=== PATIENT | male | born 1950 | race African-American/Black ===

== ENCOUNTER 2020-02-27 08:00 | Inpatient (IN) ==
[2020-02-27] MEDS ORDERED: GLUCAGON 1 MG VIAL IM PRN ×2 (08:50)
[2020-02-27] MEDS ORDERED: DEXTROSE 50% 25 GM/50 ML VIAL IV PRN ×2 (08:50)
[2020-02-27] MEDS ORDERED: SODIUM CHLORIDE 0.9% 1,000 ML IV SCH (09:00)
[2020-02-27] MEDS ORDERED: ROSUVASTATIN 10 MG TABLET PO SCH (09:00)
[2020-02-27] MEDS: ENOXAPARIN 30 MG/0.3 ML SYRINGE SUBCUT SCH (18:23)
[2020-02-27] MEDS: amLODIPine 10 MG TABLET PO SCH (18:24)
[2020-02-27] MEDS: CHLORHEXIDINE 0.12% ORAL RINSE 60 ML BOTTLE SWISH/SPIT SCH ×2 (18:24→21:11)
[2020-02-27] MEDS: hydrALAZINE 10 MG TABLET PO SCH ×2 (18:24→21:11)
[2020-02-27] MEDS: GABAPENTIN 600 MG TABLET PO SCH (18:25)
[2020-02-27] MEDS: CHLORTHALIDONE 25 MG TABLET PO SCH (18:26)
[2020-02-27] MEDS: carvediloL 3.125 MG TABLET PO SCH ×2 (18:26→21:11)
[2020-02-28 03:36] LABS: Allen Test Positive; Pt O2 Delivery Device Room Air
[2020-02-28 03:37] LABS: ABG Base Excess 3.3 MMOL/L (-2.5-2.5); ABG HCO3 27.3 MMOL/L (20-26); ABG PCO2 41.3 MM HG (35-48); ABG PH 7.437 (7.35-7.45); ABG PO2 61.2 MM HG (80-95); ABG TCO2 24.9 MMOL/L (23-27)
[2020-02-28] MEDS: LEVOTHYROXINE 25 MCG TABLET PO SCH (05:47)
[2020-02-28 06:14] LABS: Basophils % 0.8 % (0.0-0.8); Eosinophils # 0.3 10*3/uL (0.0-0.87); Eosinophils % 4.7 % (0.00-10.9); Hematocrit 31.3 VOL% (42.0-52.0); Hemoglobin 11.1 GM/DL (14.0-18.0); Immature Granulocytes % 0.2 %; Immature Granulocytes Absolute 0.01 #; Lymphocytes # 2.4 10*3/uL (1.4-4.0); Lymphocytes % 44.1 % (21.2-54.2); Mean Corpuscular HGB Conc 35.5 GM/DL (32-36); Mean Corpuscular Volume 82.6 FL (87-102); Mean Platelet Volume 10.7 FL (9.6-12.0); Monocytes % 10.9 % (1.7-12.7); Neutrophils % 39.3 % (38.7-73.9); Platelet Count 163 T/CUMM (130-400); Red Blood Count 3.79 MC/CUMM (3.8-5.5); Red Cell Distribution Width 13.7 % (9.3-17.3); White Blood Count 5.3 T/CUMM (4-12)
[2020-02-28 06:27] LABS: Bilirubin,Total 0.4 MG/DL (0.2-1.0); Calcium 8.5 MG/DL (8.5-10.1); Osmolality,Calculated 279.4 MOS/KG (273-304); Total Protein 6.3 G/DL (6.4-8.3)
[2020-02-28] MEDS: GABAPENTIN 600 MG TABLET PO SCH (09:36)
[2020-02-28] MEDS: METOPROLOL SUCCINATE XL 25 MG TABLET PO SCH (09:36)
[2020-02-28] MEDS: hydrALAZINE 10 MG TABLET PO SCH ×3 (09:36→21:22)
[2020-02-28] MEDS: amLODIPine 10 MG TABLET PO SCH (09:36)
[2020-02-28] MEDS: carvediloL 3.125 MG TABLET PO SCH ×2 (09:36→21:23)
[2020-02-28] MEDS: CHLORTHALIDONE 25 MG TABLET PO SCH (09:36)
[2020-02-28] MEDS: VALSARTAN 80 MG TABLET PO SCH (09:37)
[2020-02-28] MEDS: CHLORHEXIDINE 0.12% ORAL RINSE 60 ML BOTTLE SWISH/SPIT SCH ×2 (09:52→21:23)
[2020-02-28] MEDS: ENOXAPARIN 30 MG/0.3 ML SYRINGE SUBCUT SCH (17:07)
[2020-02-29] MEDS: LEVOTHYROXINE 25 MCG TABLET PO SCH (06:03)
[2020-02-29 06:29] LABS: Osmolality,Calculated 273.8 MOS/KG (273-304)
[2020-02-29] MEDS: METOPROLOL SUCCINATE XL 25 MG TABLET PO SCH (09:49)
[2020-02-29] MEDS: CHLORTHALIDONE 25 MG TABLET PO SCH (09:49)
[2020-02-29] MEDS: carvediloL 3.125 MG TABLET PO SCH ×2 (09:49→20:50)
[2020-02-29] MEDS: hydrALAZINE 10 MG TABLET PO SCH ×3 (09:49→20:49)
[2020-02-29] MEDS: VALSARTAN 80 MG TABLET PO SCH (09:49)
[2020-02-29] MEDS: CHLORHEXIDINE 0.12% ORAL RINSE 60 ML BOTTLE SWISH/SPIT SCH ×2 (09:49→20:49)
[2020-02-29] MEDS: GABAPENTIN 600 MG TABLET PO SCH (09:49)
[2020-02-29] MEDS: amLODIPine 10 MG TABLET PO SCH (09:49)
[2020-02-29] MEDS ORDERED: FAMOTIDINE 20 MG TABLET PO ONE (09:54)
[2020-02-29] MEDS ORDERED: DIAZEPAM 5 MG TABLET PO ONE (09:54)
[2020-02-29] MEDS: CHLORHEXIDINE 4% SOLN 118 ML BOTTLE TOP SCH ×2 (16:30→20:50)
[2020-03-01] MEDS ORDERED: PAPAVERINE 60 MG/2 ML VIAL ONE (04:23)
[2020-03-01] MEDS ORDERED: VANCOMYCIN 500 MG VIAL ONE (04:24)
[2020-03-01] MEDS ORDERED: VANCOMYCIN 1,000 MG VIAL ONE ×2 (04:24→10:06)
[2020-03-01] MEDS ORDERED: DIAZEPAM 5 MG TABLET PO ONE (05:30)
[2020-03-01] MEDS ORDERED: FAMOTIDINE 20 MG TABLET PO ONE (05:30)
[2020-03-01] MEDS ORDERED: SODIUM CHLORIDE 0.9% 1,000 ML IV SCH (06:00)
[2020-03-01] MEDS ORDERED: CEFUROXIME INJ 1,500 MG in SYRINGE 1 EACH IV ONE (06:00)
[2020-03-01] MEDS ORDERED: VECURONIUM 10 MG VIAL IV ONE (06:05)
[2020-03-01] MEDS ORDERED: LIDOCAINE 2% 5 ML VIAL ONE ×3 (06:05→10:02)
[2020-03-01] MEDS ORDERED: HEPARIN/NACL 0.9% 2 UNITS/ML 500 ML IV ONE (06:05)
[2020-03-01 07:40] LABS: ABG Base Excess 1.5 MMOL/L (-2.5-2.5); ABG HCO3 25.9 MMOL/L (20-26); ABG Oxygen Saturation 98.8 % (95-100); ABG PCO2 39.9 MM HG (35-48); ABG PO2 301.6 MM HG (80-95); ABG TCO2 27.1 MMOL/L (23-27); Glucose Heart Surgery 89 MG/DL (74-106); Hemoglobin Heart Surgery 11.6 G/DL (14.0-18.0); Ionized Calcium Arterial 1.28 MMOL/L (1.21-1.46); PCO2 Patient Temp Arterial 39.9 MMHG; PO2 Patient Temp Arterial 301.6 MM HG; Patient Temperature 37 CELCIUS; Potassium Heart/CVR 3.2 MMOL/L (3.5-5.1); Sodium Heart/CVR 134 MMOL/L (135-145)
[2020-03-01] MEDS ORDERED: NITROPRUSSIDE 50 MG/2 ML VIAL ONE (07:40)
[2020-03-01] MEDS ORDERED: SODIUM BICARBONATE 50 MEQ/50 ML VIAL IV ONE ×2 (07:40→10:03)
[2020-03-01] MEDS ORDERED: PHENYLEPHRINE DRIP 40 MG/250 ML PREMIX IV ONE (07:40)
[2020-03-01] MEDS ORDERED: POTASSIUM CHLORIDE RIDER 100 ML IV ONE (07:41)
[2020-03-01] MEDS ORDERED: CALCIUM CHLORIDE 1,000 MG/10 ML SYRINGE IV ONE (07:41)
[2020-03-01 08:19] LABS: Apearance,Urine CLEAR (Clear); Bilirubin,Urine Negative (Negative); Blood, Urine Negative (Negative); Glucose,Urine (UA) Negative (Negative); Hyaline Casts,Urine 12 /LPF (0-3); Ketones,Urine Negative (Negative); Mucus,Urine Occasional /LPF (Occasional); Nitrite,Urine Negative (Negative); Protein,Urine Negative; RBC,Urine 1 /HPF (0-4); Urine Color Yellow (Yellow); Urine Specific Gravity 1.013 (1.001-1.035); Urine Urobilinogen < 2.0 EU/DL (0.2-1.0)
[2020-03-01 09:01] LABS: Hematocrit Heart Surgery 21.9 PERCENT (42-52); PCO2 Patient Temp Venous 33.6 MM HG; PH Patient Temp Venous 7.484; PO2 Patient Temp Venous 39.8 MM HG; Potassium Heart/CVR 4.2 MMOL/L (3.5-5.1); VBG Base Excess 2.2 MEQ/L (0-4); VBG HCO3 26.2 MEQ/L (24-28); VBG Oxygen Saturation 82.1 %; VBG PCO2 38.9 MMHG (41-51); VBG PH 7.44; VBG PO2 48.9 MMHG (17-40)
[2020-03-01] MEDS ORDERED: SODIUM CHLORIDE 0.9% 200 ML IV ONE (09:22)
[2020-03-01] MEDS ORDERED: SODIUM CHLORIDE 0.9% 1,000 ML IV ONE (09:22)
[2020-03-01] MEDS ORDERED: AMINOCAPROIC ACID 5,000 MG/20 ML VIAL ONE (09:22)
[2020-03-01] MEDS ORDERED: MIDAZOLAM 10 MG/2 ML VIAL ONE (09:22)
[2020-03-01] MEDS ORDERED: SUFentanil 250 MCG/5 ML AMP ONE (09:22)
[2020-03-01] MEDS ORDERED: SODIUM CHLORIDE 0.9% 250 ML IV ONE (09:22)
[2020-03-01] MEDS ORDERED: PHENYLEPHRINE 10 MG/1 ML VIAL IV ONE (09:22)
[2020-03-01] MEDS ORDERED: CALCIUM CHLORIDE 1,000 MG/10 ML VIAL IV ONE (09:22)
[2020-03-01] MEDS ORDERED: LACTATED RINGERS 1,000 ML IV ONE ×2 (09:22→15:30)
[2020-03-01] MEDS ORDERED: EPINEPHrine 1 MG/ML VIAL ONE (09:23)
[2020-03-01 09:30] LABS: Hemoglobin Heart Surgery 7.7 G/DL (14.0-18.0); PH Patient Temp Venous 7.549; Potassium Heart/CVR 4.4 MMOL/L (3.5-5.1); VBG Base Excess 3.2 MEQ/L (0-4); VBG HCO3 27.1 MEQ/L (24-28); VBG Oxygen Saturation 80.2 %; VBG PCO2 33.5 MMHG (41-51); VBG PH 7.503; VBG PO2 45.5 MMHG (17-40)
[2020-03-01] MEDS ORDERED: MANNITOL 100 GM/500 ML BAG IV ONE (10:02)
[2020-03-01] MEDS ORDERED: DEXTROSE 5% KCL 20 MEQ 20 MEQ/1,000 ML BAG IV ONE (10:02)
[2020-03-01] MEDS ORDERED: ALBUMIN 25% 25 GM/100 ML VIAL IV ONE (10:03)
[2020-03-01] MEDS ORDERED: MAGNESIUM SULFATE 5 GM/10 ML VIAL IV ONE (10:03)
[2020-03-01] MEDS ORDERED: HEPARIN 10,000 UNIT/10 ML VIAL ONE (10:03)
[2020-03-01] MEDS ORDERED: FUROSEMIDE 20 MG/2 ML VIAL ONE (10:03)
[2020-03-01] MEDS ORDERED: PROTAMINE SULFATE 50 MG/5 ML VIAL IV ONE ×2 (10:03→11:10)
[2020-03-01] MEDS ORDERED: PROTAMINE SULFATE 250 MG/25 ML VIAL IV ONE (10:03)
[2020-03-01] MEDS ORDERED: methylPREDNISolone SOD SUC 1,000 MG/8 ML VIAL ONE (10:03)
[2020-03-01 10:04] LABS: ABG Base Excess 1.2 MMOL/L (-2.5-2.5); ABG HCO3 25.5 MMOL/L (20-26); ABG PCO2 37.9 MM HG (35-48); ABG PH 7.434 (7.35-7.45); ABG TCO2 23.6 MMOL/L (23-27); Glucose Heart Surgery 177 MG/DL (74-106); Hematocrit Heart Surgery 24.8 PERCENT (42-52); Ionized Calcium Arterial 1.38 MMOL/L (1.21-1.46); PCO2 Patient Temp Arterial 37.9 MMHG; PH Patient Temp Arterial 7.434; Patient Temperature 37 CELCIUS; Potassium Heart/CVR 3.9 MMOL/L (3.5-5.1); Sodium Heart/CVR 134 MMOL/L (135-145)
[2020-03-01] MEDS: carvediloL 3.125 MG TABLET PO SCH (10:09)
[2020-03-01] MEDS: CHLORTHALIDONE 25 MG TABLET PO SCH (10:09)
[2020-03-01] MEDS: LEVOTHYROXINE 25 MCG TABLET PO SCH (10:09)
[2020-03-01] MEDS: hydrALAZINE 10 MG TABLET PO SCH (10:09)
[2020-03-01] MEDS: CHLORHEXIDINE 4% SOLN 118 ML BOTTLE TOP SCH (10:09)
[2020-03-01] MEDS: VALSARTAN 80 MG TABLET PO SCH (10:09)
[2020-03-01] MEDS: CHLORHEXIDINE 0.12% ORAL RINSE 60 ML BOTTLE SWISH/SPIT SCH (10:10)
[2020-03-01] MEDS: amLODIPine 10 MG TABLET PO SCH (10:10)
[2020-03-01] MEDS: GABAPENTIN 600 MG TABLET PO SCH (10:10)
[2020-03-01] MEDS: METOPROLOL SUCCINATE XL 25 MG TABLET PO SCH (10:10)
[2020-03-01] MEDS ORDERED: SEVOFLURANE 1 UNIT/15 MINUTE INH ONE (10:48)
[2020-03-01] MEDS ORDERED: VECURONIUM 10 MG VIAL IV PRN ×2 (10:59)
[2020-03-01] MEDS ORDERED: MAGNESIUM SULF RIDER 4 GM in PREMIX 1 EACH IV PRN (10:59)
[2020-03-01] MEDS ORDERED: POTASSIUM CHLORIDE RIDER 10 MEQ in PREMIX 1 EACH IV PRN (10:59)
[2020-03-01] MEDS ORDERED: INSULIN REGULAR DRIP 100 ML IV SCH (10:59)
[2020-03-01] MEDS ORDERED: MORPHINE 10 MG/1 ML VIAL IV PRN (10:59)
[2020-03-01] MEDS ORDERED: LACTATED RINGERS 250 ML IV PRN (10:59)
[2020-03-01] MEDS ORDERED: ONDANSETRON 4 MG/2 ML VIAL IV PRN (10:59)
[2020-03-01] MEDS ORDERED: ACETAMINOPHEN 650 MG SUPP RECTAL PRN (10:59)
[2020-03-01] MEDS ORDERED: MIDAZOLAM 2 MG/2 ML VIAL IV PRN (10:59)
[2020-03-01] MEDS ORDERED: MIDAZOLAM 10 MG/2 ML VIAL IV PRN (10:59)
[2020-03-01] MEDS ORDERED: INSULIN REGULAR 100 UNIT/ML IV ONE (10:59)
[2020-03-01] MEDS ORDERED: PHENYLEPHRINE DRIP 40 MG/250 ML PREMIX IV PRN (10:59)
[2020-03-01] MEDS ORDERED: CHLORHEXIDINE 4% SOLN 118 ML BOTTLE TOP PRN (10:59)
[2020-03-01] MEDS ORDERED: MAGNESIUM SULF RIDER 2 GM in PREMIX 1 EACH IV PRN (10:59)
[2020-03-01] MEDS ORDERED: DEXTROSE 50% 25 GM/50 ML VIAL IV PRN ×2 (10:59)
[2020-03-01] MEDS ORDERED: INSULIN REGULAR 100 UNIT/ML IV PRN (10:59)
[2020-03-01] MEDS ORDERED: CALCIUM CHLORIDE 1,000 MG/10 ML SYRINGE IV PRN (10:59)
[2020-03-01] MEDS ORDERED: SODIUM CHLORIDE 0.45% 1,000 ML IV SCH ×2 (10:59)
[2020-03-01] MEDS ORDERED: NITROPRUSSIDE 100 MG in DEXTROSE 5% 250 ML IV PRN (10:59)
[2020-03-01] MEDS ORDERED: LACTATED RINGERS 2,000 ML IV ONE ×2 (11:00→13:30)
[2020-03-01 11:31] LABS: ABG Base Excess 2.4 MMOL/L (-2.5-2.5); ABG HCO3 26.2 MMOL/L (20-26); ABG Oxygen Saturation 95.9 % (95-100); ABG PCO2 37.5 MM HG (35-48); ABG PH 7.462 (7.35-7.45); ABG PO2 89.8 MM HG (80-95); ABG TCO2 27.3 MMOL/L (23-27); Glucose Heart Surgery 146 MG/DL (74-106); Hemoglobin Heart Surgery 11.7 G/DL (14.0-18.0); Potassium Heart/CVR 3.4 MMOL/L (3.5-5.1)
[2020-03-01 11:34] LABS: Basophils % 0.5 % (0.0-0.8); Eosinophils # 0.1 10*3/uL (0.0-0.87); Eosinophils % 2.4 % (0.00-10.9); Hemoglobin 10.2 GM/DL (14.0-18.0); Immature Granulocytes % 0.5 %; Immature Granulocytes Absolute 0.03 #; Lymphocytes # 2.1 10*3/uL (1.4-4.0); Lymphocytes % 35.4 % (21.2-54.2); Mean Corpuscular HGB Conc 36.4 GM/DL (32-36); Mean Corpuscular Volume 80.9 FL (87-102); Mean Platelet Volume 10.3 FL (9.6-12.0); Monocytes % 8.5 % (1.7-12.7); Neutrophils % 52.7 % (38.7-73.9); Platelet Count 135 T/CUMM (130-400); Red Blood Count 3.46 MC/CUMM (3.8-5.5); Red Cell Distribution Width 13.7 % (9.3-17.3); White Blood Count 5.9 T/CUMM (4-12)
[2020-03-01 11:42] LABS: INR 1.2; PT Patient Result 12.6 SECS (9.8-11.9); Partial Thromboplastin Time 30.5 SECS (23.9-33.8)
[2020-03-01] MEDS: POTASSIUM CHLORIDE RIDER 20 MEQ in PREMIX 1 EACH IV PRN ×6 (11:52→20:09)
[2020-03-01] MEDS ORDERED: ALBUMIN 5% 12.5 GM/250 ML VIAL IV ONE ×3 (11:57→16:29)
[2020-03-01 12:09] LABS: Albumin 3.6 G/DL (3.4-5.0); Bilirubin,Total 1.5 MG/DL (0.2-1.0); Calcium 10.2 MG/DL (8.5-10.1); Osmolality,Calculated 278.7 MOS/KG (273-304); Total Protein 6.6 G/DL (6.4-8.3)
[2020-03-01] MEDS: ALBUMIN 5% 12.5 GM in PREMIX 1 EACH IV PRN ×3 (12:09→16:35)
[2020-03-01 12:25] LABS: Troponin I 2.1 NG/ML (0.00-0.045)
[2020-03-01 12:45] LABS: ABG Base Excess 2.3 MMOL/L (-2.5-2.5); ABG HCO3 26.4 MMOL/L (20-26); ABG PCO2 36.2 MM HG (35-48); ABG PH 7.463 (7.35-7.45); ABG PO2 88.4 MM HG (80-95); ABG TCO2 23.6 MMOL/L (23-27); Glucose Heart Surgery 149 MG/DL (74-106); Hematocrit Heart Surgery 29.6 PERCENT (42-52); Hemoglobin Heart Surgery 9.6 G/DL (14.0-18.0); Potassium Heart/CVR 3.8 MMOL/L (3.5-5.1)
[2020-03-01 13:54] LABS: ABG Base Excess 2.2 MMOL/L (-2.5-2.5); ABG HCO3 26.3 MMOL/L (20-26); ABG PCO2 35.1 MM HG (35-48); ABG PH 7.471 (7.35-7.45); ABG PO2 74.2 MM HG (80-95); ABG TCO2 23.4 MMOL/L (23-27); Glucose Heart Surgery 161 MG/DL (74-106); Hematocrit Heart Surgery 29.2 PERCENT (42-52); Hemoglobin Heart Surgery 9.4 G/DL (14.0-18.0); Potassium Heart/CVR 3.9 MMOL/L (3.5-5.1)
[2020-03-01] MEDS: INSULIN REGULAR 100 UNIT/ML SUBCUT SCH ×4 (14:27→23:35)
[2020-03-01 16:21] LABS: ABG Base Excess 1.5 MMOL/L (-2.5-2.5); ABG HCO3 25.7 MMOL/L (20-26); ABG Oxygen Saturation 94.7 % (95-100); ABG PCO2 39.8 MM HG (35-48); ABG PH 7.423 (7.35-7.45); ABG PO2 76.6 MM HG (80-95); ABG TCO2 23.4 MMOL/L (23-27); Glucose Heart Surgery 176 MG/DL (74-106); Hematocrit Heart Surgery 32.5 PERCENT (42-52); Hemoglobin Heart Surgery 10.5 G/DL (14.0-18.0)
[2020-03-01] MEDS: CEFUROXIME INJ 1,500 MG in SYRINGE 1 EACH IV SCH (17:37)
[2020-03-01 19:45] LABS: ABG Base Excess 1.3 MMOL/L (-2.5-2.5); ABG HCO3 25.5 MMOL/L (20-26); ABG Oxygen Saturation 92.3 % (95-100); ABG PCO2 39.6 MM HG (35-48); ABG PH 7.421 (7.35-7.45); ABG PO2 67.7 MM HG (80-95); ABG TCO2 23.4 MMOL/L (23-27); Glucose Heart Surgery 167 MG/DL (74-106); Hematocrit Heart Surgery 31.1 PERCENT (42-52); Hemoglobin Heart Surgery 10.1 G/DL (14.0-18.0)
[2020-03-01 20:01] LABS: CKMB % 2.4 %
[2020-03-01 20:05] LABS: Troponin I 7.88 NG/ML (0.00-0.045)
[2020-03-01] MEDS: MORPHINE 4 MG/1 ML VIAL IV PRN (20:15)
[2020-03-01] MEDS ORDERED: CHLORHEXIDINE 0.12% ORAL RINSE 60 ML BOTTLE SWISH/SPIT SCH (21:00)
[2020-03-01 21:46] LABS: ABG Base Excess 0.3 MMOL/L (-2.5-2.5); ABG HCO3 24.6 MMOL/L (20-26); ABG Oxygen Saturation 92.7 % (95-100); ABG PCO2 43.1 MM HG (35-48); ABG PH 7.381 (7.35-7.45); ABG PO2 73.4 MM HG (80-95); ABG TCO2 23.1 MMOL/L (23-27); Glucose Heart Surgery 166 MG/DL (74-106); Hematocrit Heart Surgery 32.6 PERCENT (42-52); Hemoglobin Heart Surgery 10.6 G/DL (14.0-18.0); Potassium Heart/CVR 4.3 MMOL/L (3.5-5.1)
[2020-03-01 23:09] LABS: ABG Base Excess -0.6 MMOL/L (-2.5-2.5); ABG HCO3 24.3 MMOL/L (20-26); ABG Oxygen Saturation 90.9 % (95-100); ABG PH 7.391 (7.35-7.45); ABG PO2 67.9 MM HG (80-95); ABG TCO2 25.6 MMOL/L (23-27); Glucose Heart Surgery 157 MG/DL (74-106); Hemoglobin Heart Surgery 10.8 G/DL (14.0-18.0); Potassium Heart/CVR 4.3 MMOL/L (3.5-5.1)
[2020-03-02] MEDS: MORPHINE 4 MG/1 ML VIAL IV PRN (00:43)
[2020-03-02 01:31] LABS: ABG Base Excess -0.1 MMOL/L (-2.5-2.5); ABG HCO3 24.3 MMOL/L (20-26); ABG Oxygen Saturation 93.7 % (95-100); ABG PCO2 41.2 MM HG (35-48); ABG PH 7.389 (7.35-7.45); ABG PO2 74.5 MM HG (80-95); ABG TCO2 22.5 MMOL/L (23-27); Glucose Heart Surgery 155 MG/DL (74-106); Hematocrit Heart Surgery 33.2 PERCENT (42-52); Hemoglobin Heart Surgery 10.7 G/DL (14.0-18.0); Potassium Heart/CVR 4.2 MMOL/L (3.5-5.1)
[2020-03-02 02:17] LABS: Basophils % 0.1 % (0.0-0.8); Hematocrit 29.6 VOL% (42.0-52.0); Hemoglobin 10.5 GM/DL (14.0-18.0); Immature Granulocytes % 0.7 %; Immature Granulocytes Absolute 0.07 #; Lymphocytes # 1.2 10*3/uL (1.4-4.0); Lymphocytes % 11.3 % (21.2-54.2); Mean Corpuscular HGB Conc 35.5 GM/DL (32-36); Mean Corpuscular Volume 82.5 FL (87-102); Mean Platelet Volume 10.5 FL (9.6-12.0); Monocytes % 7.1 % (1.7-12.7); Neutrophils % 80.8 % (38.7-73.9); Platelet Count 143 T/CUMM (130-400); Red Blood Count 3.59 MC/CUMM (3.8-5.5); Red Cell Distribution Width 14.2 % (9.3-17.3)
[2020-03-02 02:19] LABS: White Blood Count 10.2 T/CUMM (4-12)
[2020-03-02 02:20] LABS: ABG Base Excess -0.5 MMOL/L (-2.5-2.5); ABG HCO3 24.8 MMOL/L (20-26); ABG Oxygen Saturation 88.6 % (95-100); ABG PCO2 42.9 MM HG (35-48); ABG PH 7.379 (7.35-7.45); ABG PO2 62.2 MM HG (80-95); ABG TCO2 26.1 MMOL/L (23-27); Glucose Heart Surgery 146 MG/DL (74-106)
[2020-03-02 02:35] LABS: Albumin 3.8 G/DL (3.4-5.0); Bilirubin,Direct 0.16 MG/DL (0.0-0.20); Bilirubin,Total 0.7 MG/DL (0.2-1.0); Calcium 8.8 MG/DL (8.5-10.1); Osmolality,Calculated 287.1 MOS/KG (273-304); Total Protein 7.1 G/DL (6.4-8.3)
[2020-03-02 02:41] LABS: CKMB % 1.8 %
[2020-03-02] MEDS: POTASSIUM CHLORIDE RIDER 20 MEQ in PREMIX 1 EACH IV PRN (02:42)
[2020-03-02 03:02] LABS: Troponin I 8.72 NG/ML (0.00-0.045)
[2020-03-02] MEDS: INSULIN REGULAR 100 UNIT/ML SUBCUT SCH ×5 (03:29→21:47)
[2020-03-02] MEDS: CEFUROXIME INJ 1,500 MG in SYRINGE 1 EACH IV SCH (05:42)
[2020-03-02] MEDS ORDERED: ALBUTEROL/IPRATROPIUM 3 ML NEB RESP TX ONE (06:30)
[2020-03-02] MEDS: LEVOTHYROXINE 25 MCG TABLET PO SCH (06:31)
[2020-03-02] MEDS ORDERED: ALUMINUM/MAGNES/SIMETH MAX STR 30 ML UDCUP PO PRN (07:18)
[2020-03-02] MEDS ORDERED: MAGNESIUM SULF RIDER 4 GM in PREMIX 1 EACH IV PRN (07:18)
[2020-03-02] MEDS ORDERED: ZALEPLON 5 MG CAPSULE PO PRN (07:18)
[2020-03-02] MEDS ORDERED: GLUCAGON 1 MG VIAL IM PRN ×2 (07:18)
[2020-03-02] MEDS ORDERED: MAGNESIUM HYDROXIDE SUSP 30 ML UDCUP PO PRN (07:18)
[2020-03-02] MEDS ORDERED: ACETAMINOPHEN 325 MG TABLET PO PRN (07:18)
[2020-03-02] MEDS ORDERED: ONDANSETRON 4 MG/2 ML VIAL IV PRN (07:18)
[2020-03-02] MEDS ORDERED: MAGNESIUM SULF RIDER 2 GM in PREMIX 1 EACH IV PRN (07:18)
[2020-03-02] MEDS ORDERED: DEXTROSE 50% 25 GM/50 ML VIAL IV PRN ×2 (07:18)
[2020-03-02] MEDS ORDERED: KETOROLAC 30 MG/1 ML VIAL IV PRN (07:18)
[2020-03-02] MEDS: GABAPENTIN 600 MG TABLET PO SCH ×2 (08:46→08:58)
[2020-03-02] MEDS: CHLORHEXIDINE 0.12% ORAL RINSE 60 ML BOTTLE SWISH/SPIT SCH ×2 (08:56→21:44)
[2020-03-02] MEDS: carvediloL 3.125 MG TABLET PO SCH ×2 (08:57→16:34)
[2020-03-02] MEDS: EZETIMIBE 10 MG TABLET PO SCH (08:57)
[2020-03-02] MEDS: METOPROLOL SUCCINATE XL 25 MG TABLET PO SCH (08:57)
[2020-03-02] MEDS: PANTOPRAZOLE 40 MG TABLET PO SCH (08:57)
[2020-03-02] MEDS: ASPIRIN EC 325 MG TABLET PO SCH (08:57)
[2020-03-02] MEDS: CHLORTHALIDONE 25 MG TABLET PO SCH (08:57)
[2020-03-02] MEDS: amLODIPine 10 MG TABLET PO SCH (08:57)
[2020-03-02] MEDS: FERROUS SULFATE 325 MG TABLET PO SCH (08:57)
[2020-03-02] MEDS: DOCUSATE SODIUM 100 MG CAPSULE PO SCH (08:57)
[2020-03-02] MEDS: hydrALAZINE 10 MG TABLET PO SCH ×3 (08:58→21:26)
[2020-03-02] MEDS: SODIUM CHLOR 0.45% KCL 20 MEQ 20 MEQ/1,000 ML BAG IV SCH (08:58)
[2020-03-02] MEDS ORDERED: ALBUTEROL/IPRATROPIUM 3 ML NEB RESP TX PRN (13:30)
[2020-03-02] MEDS: ALBUTEROL/IPRATROPIUM 3 ML NEB RESP TX SCH ×4 (13:32→23:58)
[2020-03-02] MEDS ORDERED: FUROSEMIDE 40 MG/4 ML VIAL IV ONE ×2 (15:08→20:53)
[2020-03-02] MEDS ORDERED: ETOMIDATE 20 MG/10 ML VIAL IV ONE ×2 (22:59→23:24)
[2020-03-02] MEDS ORDERED: SUCCINYLCHOLINE 200 MG/10 ML VIAL ONE (22:59)
[2020-03-02] MEDS ORDERED: SUCCINYLCHOLINE 200 MG/10 ML VIAL IV ONE (23:24)
[2020-03-02] MEDS ORDERED: MIDAZOLAM 2 MG/2 ML VIAL ONE (23:34)
[2020-03-02] MEDS ORDERED: VECURONIUM 10 MG VIAL IV ONE ×2 (23:36→23:39)
[2020-03-02] MEDS ORDERED: MIDAZOLAM 2 MG/2 ML VIAL IV ONE (23:39)
[2020-03-03 00:41] LABS: ABG HCO3 26.2 MMOL/L (20-26); ABG Oxygen Saturation 92.9 % (95-100); ABG PCO2 43.8 MM HG (35-48); ABG PH 7.394 (7.35-7.45); ABG TCO2 27.5 MMOL/L (23-27); Glucose Heart Surgery 158 MG/DL (74-106); Hemoglobin Heart Surgery 10.4 G/DL (14.0-18.0); Potassium Heart/CVR 3.9 MMOL/L (3.5-5.1)
[2020-03-03 03:50] LABS: Allen Test Positive; Pt O2 Delivery Device Ventilator
[2020-03-03 03:52] LABS: ABG Base Excess 4.7 MMOL/L (-2.5-2.5); ABG HCO3 28.6 MMOL/L (20-26); ABG Oxygen Saturation 94.2 % (95-100); ABG PCO2 41.4 MM HG (35-48); ABG PH 7.454 (7.35-7.45); ABG PO2 74.4 MM HG (80-95); ABG TCO2 26.3 MMOL/L (23-27)
[2020-03-03 04:58] LABS: Basophils % 0.1 % (0.0-0.8); Immature Granulocytes % 0.6 %; Immature Granulocytes Absolute 0.08 #; Lymphocytes # 1.3 10*3/uL (1.4-4.0); Lymphocytes % 9.8 % (21.2-54.2); Mean Corpuscular HGB Conc 35.7 GM/DL (32-36); Mean Corpuscular Volume 82.6 FL (87-102); Mean Platelet Volume 10.4 FL (9.6-12.0); Monocytes % 15.6 % (1.7-12.7); Neutrophils % 73.9 % (38.7-73.9); Platelet Count 142 T/CUMM (130-400); Red Blood Count 3.39 MC/CUMM (3.8-5.5); Red Cell Distribution Width 14.6 % (9.3-17.3); White Blood Count 13.5 T/CUMM (4-12)
[2020-03-03] MEDS ORDERED: POTASSIUM CHLORIDE RIDER 10 MEQ in PREMIX 1 EACH IV PRN (05:09)
[2020-03-03 05:37] LABS: Albumin 3.6 G/DL (3.4-5.0); Bilirubin,Direct 0.14 MG/DL (0.0-0.20); Bilirubin,Indirect 0.4 MG/DL (0.0-1.0); Bilirubin,Total 0.5 MG/DL (0.2-1.0); CKMB % 0.4 %; Osmolality,Calculated 285.5 MOS/KG (273-304); Total Protein 7.2 G/DL (6.4-8.3)
[2020-03-03] MEDS ORDERED: FUROSEMIDE 40 MG/4 ML VIAL IV ONE (06:00)
[2020-03-03 06:35] LABS: Band Neutrophils 2 % (0-10); Eosinophils 1 % (0-10); Hypochromasia 2+; Lymphocytes 11 % (20-55); Metamyelocytes 2 %; Platelet Estimate Adequate; Segmented Neutrophils 71 % (50-85); Total Cells Counted 100
[2020-03-03] MEDS: LEVOTHYROXINE 25 MCG TABLET PO SCH (06:41)
[2020-03-03 06:51] LABS: Troponin I 8.67 NG/ML (0.00-0.045)
[2020-03-03] MEDS: ALBUTEROL/IPRATROPIUM 3 ML NEB RESP TX SCH ×4 (07:05→20:09)
[2020-03-03] MEDS: POTASSIUM CHLORIDE RIDER 20 MEQ in PREMIX 1 EACH IV PRN (07:06)
[2020-03-03] MEDS: INSULIN REGULAR 100 UNIT/ML SUBCUT SCH ×4 (08:32→20:36)
[2020-03-03] MEDS: carvediloL 3.125 MG TABLET PO SCH (08:37)
[2020-03-03] MEDS: PANTOPRAZOLE 40 MG TABLET PO SCH (08:37)
[2020-03-03] MEDS: CHLORTHALIDONE 25 MG TABLET PO SCH (08:37)
[2020-03-03] MEDS: ASPIRIN EC 325 MG TABLET PO SCH (08:37)
[2020-03-03] MEDS: GABAPENTIN 600 MG TABLET PO SCH (08:37)
[2020-03-03] MEDS: EZETIMIBE 10 MG TABLET PO SCH (08:37)
[2020-03-03] MEDS: FERROUS SULFATE 325 MG TABLET PO SCH (08:37)
[2020-03-03] MEDS: amLODIPine 10 MG TABLET PO SCH (08:37)
[2020-03-03] MEDS: METOPROLOL SUCCINATE XL 25 MG TABLET PO SCH (08:37)
[2020-03-03] MEDS: DOCUSATE SODIUM 100 MG CAPSULE PO SCH (08:37)
[2020-03-03] MEDS: hydrALAZINE 10 MG TABLET PO SCH ×3 (08:37→21:27)
[2020-03-03] MEDS: CHLORHEXIDINE 0.12% ORAL RINSE 60 ML BOTTLE SWISH/SPIT SCH ×2 (08:41→21:27)
[2020-03-03] MEDS: SODIUM CHLOR 0.45% KCL 20 MEQ 20 MEQ/1,000 ML BAG IV SCH (08:53)
[2020-03-03] MEDS ORDERED: AMIODARONE INJ 150 MG in DEXTROSE 5% 100 ML IV ONE (13:22)
[2020-03-03] MEDS ORDERED: AMIODARONE 450 MG/9 ML VIAL IV ONE (13:27)
[2020-03-03] MEDS ORDERED: AMIODARONE 150 MG/3 ML VIAL ONE (13:28)
[2020-03-03] MEDS ORDERED: AMIODARONE INJ 450 MG in DEXTROSE 5% 241 ML IV SCH ×2 (13:30→19:30)
[2020-03-04] MEDS: ALBUTEROL/IPRATROPIUM 3 ML NEB RESP TX SCH ×8 (00:52→23:04)
[2020-03-04 04:56] LABS: Basophils % 0.2 % (0.0-0.8); Eosinophils % 0.2 % (0.00-10.9); Hematocrit 27.1 VOL% (42.0-52.0); Hemoglobin 9.8 GM/DL (14.0-18.0); Immature Granulocytes % 0.6 %; Immature Granulocytes Absolute 0.07 #; Lymphocytes # 2.3 10*3/uL (1.4-4.0); Lymphocytes % 18.3 % (21.2-54.2); Mean Corpuscular HGB Conc 36.2 GM/DL (32-36); Mean Corpuscular Volume 81.9 FL (87-102); Monocytes % 12.4 % (1.7-12.7); Neutrophils % 68.3 % (38.7-73.9); Platelet Count 132 T/CUMM (130-400); Red Blood Count 3.31 MC/CUMM (3.8-5.5); Red Cell Distribution Width 14.4 % (9.3-17.3); White Blood Count 12.3 T/CUMM (4-12)
[2020-03-04 05:27] LABS: Anisocytosis 1+; Hypochromasia 1+; Target Cells Few
[2020-03-04 05:28] LABS: Platelet Estimate Adequate
[2020-03-04 05:35] LABS: Alanine Aminotransferase 86 U/L (16-61); Albumin 3.2 G/DL (3.4-5.0); Alkaline Phosphatase 75 U/L (45-117); Aspartate Amino Transferase 108 U/L (0-37); Bilirubin,Indirect 0.5 MG/DL (0.0-1.0); Blood Urea Nitrogen 30 MG/DL (7-18); Calcium 8.6 MG/DL (8.5-10.1); Estimated Glom Filtration Rate 75 ML/MIN; Glucose 97 MG/DL (74-106); Osmolality,Calculated 282.5 MOS/KG (273-304); Total Protein 6.8 G/DL (6.4-8.3)
[2020-03-04 05:42] LABS: ABG Base Excess 6.1 MMOL/L (-2.5-2.5); ABG HCO3 29.8 MMOL/L (20-26); ABG PCO2 39.5 MM HG (35-48); ABG PH 7.495 (7.35-7.45); ABG PO2 104.9 MM HG (80-95); Allen Test Positive; Pt O2 Delivery Device Ventilator
[2020-03-04] MEDS: LEVOTHYROXINE 25 MCG TABLET PO SCH (06:06)
[2020-03-04] MEDS: POTASSIUM CHLORIDE RIDER 20 MEQ in PREMIX 1 EACH IV PRN (06:06)
[2020-03-04] MEDS: INSULIN REGULAR 100 UNIT/ML SUBCUT SCH ×4 (07:30→20:31)
[2020-03-04] MEDS ORDERED: MORPHINE 4 MG/1 ML VIAL ONE (08:20)
[2020-03-04] MEDS ORDERED: MORPHINE 4 MG/1 ML VIAL IV PRN ×2 (08:51)
[2020-03-04] MEDS: GABAPENTIN 600 MG TABLET PO SCH (09:00)
[2020-03-04] MEDS: AMIODARONE 200 MG TABLET PO SCH ×2 (09:00→20:31)
[2020-03-04] MEDS: CHLORHEXIDINE 0.12% ORAL RINSE 60 ML BOTTLE SWISH/SPIT SCH ×2 (09:00→20:32)
[2020-03-04] MEDS: ASPIRIN EC 325 MG TABLET PO SCH (09:06)
[2020-03-04] MEDS: hydrALAZINE 10 MG TABLET PO SCH ×3 (09:07→20:31)
[2020-03-04] MEDS: PANTOPRAZOLE 40 MG TABLET PO SCH (09:07)
[2020-03-04] MEDS: FERROUS SULFATE 325 MG TABLET PO SCH (09:07)
[2020-03-04] MEDS: CHLORTHALIDONE 25 MG TABLET PO SCH (09:07)
[2020-03-04] MEDS: DOCUSATE SODIUM 100 MG CAPSULE PO SCH (09:07)
[2020-03-04] MEDS: EZETIMIBE 10 MG TABLET PO SCH (09:08)
[2020-03-04] MEDS: amLODIPine 10 MG TABLET PO SCH (09:08)
[2020-03-04] MEDS: methylPREDNISolone SOD SUC 40 MG/1 ML VIAL IV SCH ×2 (15:25→23:00)
[2020-03-05] MEDS: ALBUTEROL/IPRATROPIUM 3 ML NEB RESP TX SCH ×6 (02:55→23:24)
[2020-03-05 04:41] LABS: Hematocrit 27.5 VOL% (42.0-52.0); Hemoglobin 9.9 GM/DL (14.0-18.0); Immature Granulocytes % 0.5 %; Immature Granulocytes Absolute 0.04 #; Lymphocytes # 0.8 10*3/uL (1.4-4.0); Lymphocytes % 10.5 % (21.2-54.2); Mean Corpuscular Volume 82.6 FL (87-102); Mean Platelet Volume 10.3 FL (9.6-12.0); Monocytes % 3.1 % (1.7-12.7); Neutrophils % 85.9 % (38.7-73.9); Platelet Count 153 T/CUMM (130-400); Red Blood Count 3.33 MC/CUMM (3.8-5.5); Red Cell Distribution Width 14.1 % (9.3-17.3); White Blood Count 7.5 T/CUMM (4-12)
[2020-03-05 04:46] LABS: ABG Base Excess 4.4 MMOL/L (-2.5-2.5); ABG HCO3 28.9 MMOL/L (20-26); ABG Oxygen Saturation 97.2 % (95-100); ABG PCO2 43.2 MM HG (35-48); ABG PH 7.444 (7.35-7.45); ABG PO2 106.8 MM HG (80-95); ABG TCO2 30.3 MMOL/L (23-27); Allen Test Positive; Pt O2 Delivery Device Ventilator
[2020-03-05 05:00] LABS: Calcium 8.5 MG/DL (8.5-10.1)
[2020-03-05] MEDS: POTASSIUM CHLORIDE 20 MEQ TABLET PO PRN ×2 (05:29→06:36)
[2020-03-05] MEDS: methylPREDNISolone SOD SUC 40 MG/1 ML VIAL IV SCH ×3 (06:37→21:56)
[2020-03-05] MEDS: LEVOTHYROXINE 25 MCG TABLET PO SCH (06:37)
[2020-03-05] MEDS: INSULIN REGULAR 100 UNIT/ML SUBCUT SCH ×4 (07:30→20:27)
[2020-03-05] MEDS ORDERED: MIDAZOLAM 2 MG/2 ML VIAL ONE (08:25)
[2020-03-05] MEDS ORDERED: MIDAZOLAM 2 MG/2 ML VIAL IV ONE (08:27)
[2020-03-05] MEDS: PANTOPRAZOLE 40 MG TABLET PO SCH (09:04)
[2020-03-05] MEDS: EZETIMIBE 10 MG TABLET PO SCH (09:04)
[2020-03-05] MEDS: CHLORTHALIDONE 25 MG TABLET PO SCH (09:05)
[2020-03-05] MEDS: AMIODARONE 200 MG TABLET PO SCH ×2 (09:05→20:27)
[2020-03-05] MEDS: GABAPENTIN 600 MG TABLET PO SCH (09:05)
[2020-03-05] MEDS: amLODIPine 10 MG TABLET PO SCH (09:05)
[2020-03-05] MEDS: ASPIRIN EC 325 MG TABLET PO SCH (09:05)
[2020-03-05] MEDS: CHLORHEXIDINE 0.12% ORAL RINSE 60 ML BOTTLE SWISH/SPIT SCH ×2 (09:06→20:27)
[2020-03-05] MEDS: DOCUSATE SODIUM 100 MG CAPSULE PO SCH (09:06)
[2020-03-05] MEDS: FERROUS SULFATE 325 MG TABLET PO SCH (09:06)
[2020-03-05] MEDS: hydrALAZINE 10 MG TABLET PO SCH ×2 (09:33→15:05)
[2020-03-05] MEDS ORDERED: ALBUMIN 5% 25 GM in PREMIX 1 EACH IV ONE (15:11)
[2020-03-06 02:27] LABS: Basophils % 0.1 % (0.0-0.8); Hematocrit 27.5 VOL% (42.0-52.0); Hemoglobin 9.8 GM/DL (14.0-18.0); Immature Granulocytes % 0.8 %; Immature Granulocytes Absolute 0.09 #; Lymphocytes % 8.3 % (21.2-54.2); Mean Corpuscular HGB Conc 35.6 GM/DL (32-36); Mean Corpuscular Volume 81.8 FL (87-102); Mean Platelet Volume 10.3 FL (9.6-12.0); Monocytes % 5.7 % (1.7-12.7); Neutrophils % 85.1 % (38.7-73.9); Platelet Count 188 T/CUMM (130-400); Red Blood Count 3.36 MC/CUMM (3.8-5.5); Red Cell Distribution Width 14.6 % (9.3-17.3)
[2020-03-06] MEDS: ALBUTEROL/IPRATROPIUM 3 ML NEB RESP TX SCH ×6 (02:47→22:47)
[2020-03-06 03:00] LABS: Albumin 3.6 G/DL (3.4-5.0); Bilirubin,Direct 0.14 MG/DL (0.0-0.20); Bilirubin,Indirect 0.4 MG/DL (0.0-1.0); Bilirubin,Total 0.5 MG/DL (0.2-1.0); CKMB % 0.4 %; Calcium 8.4 MG/DL (8.5-10.1); Osmolality,Calculated 289.5 MOS/KG (273-304); Total Protein 7.5 G/DL (6.4-8.3)
[2020-03-06 03:01] LABS: Troponin I 2.76 NG/ML (0.00-0.045)
[2020-03-06] MEDS: POTASSIUM CHLORIDE 20 MEQ TABLET PO PRN ×2 (05:29→06:33)
[2020-03-06] MEDS: LEVOTHYROXINE 25 MCG TABLET PO SCH (05:30)
[2020-03-06] MEDS: methylPREDNISolone SOD SUC 40 MG/1 ML VIAL IV SCH ×2 (05:32→20:14)
[2020-03-06] MEDS: INSULIN REGULAR 100 UNIT/ML SUBCUT SCH ×4 (08:05→20:14)
[2020-03-06] MEDS ORDERED: hydrALAZINE 20 MG/1 ML VIAL IV PRN (08:45)
[2020-03-06] MEDS ORDERED: hydrALAZINE 10 MG TABLET PO SCH (09:00)
[2020-03-06] MEDS: GABAPENTIN 600 MG TABLET PO SCH (09:00)
[2020-03-06] MEDS: amLODIPine 5 MG TABLET PO SCH (09:01)
[2020-03-06] MEDS: AMIODARONE 200 MG TABLET PO SCH ×2 (09:01→20:14)
[2020-03-06] MEDS: FERROUS SULFATE 325 MG TABLET PO SCH (09:01)
[2020-03-06] MEDS: ASPIRIN EC 325 MG TABLET PO SCH (09:01)
[2020-03-06] MEDS: EZETIMIBE 10 MG TABLET PO SCH (09:01)
[2020-03-06] MEDS: PANTOPRAZOLE 40 MG TABLET PO SCH (09:02)
[2020-03-06] MEDS: CHLORTHALIDONE 25 MG TABLET PO SCH (09:02)
[2020-03-06] MEDS: DOCUSATE SODIUM 100 MG CAPSULE PO SCH (09:03)
[2020-03-06] MEDS: CHLORHEXIDINE 0.12% ORAL RINSE 60 ML BOTTLE SWISH/SPIT SCH ×2 (09:03→20:16)
[2020-03-06] MEDS: oxyCODONE/ACETAMINOPHEN 5-325 MG TABLET PO PRN ×2 (09:06→22:43)
[2020-03-07 02:34] LABS: Basophils % 0.1 % (0.0-0.8); Hematocrit 27.5 VOL% (42.0-52.0); Hemoglobin 9.6 GM/DL (14.0-18.0); Immature Granulocytes Absolute 0.44 #; Lymphocytes # 1.5 10*3/uL (1.4-4.0); Lymphocytes % 9.7 % (21.2-54.2); Mean Corpuscular HGB Conc 34.9 GM/DL (32-36); Mean Corpuscular Volume 84.4 FL (87-102); Mean Platelet Volume 10.2 FL (9.6-12.0); Monocytes % 9.5 % (1.7-12.7); Neutrophils % 77.7 % (38.7-73.9); Platelet Count 207 T/CUMM (130-400); Red Blood Count 3.26 MC/CUMM (3.8-5.5); Red Cell Distribution Width 14.4 % (9.3-17.3); White Blood Count 14.9 T/CUMM (4-12)
[2020-03-07] MEDS: ALBUTEROL/IPRATROPIUM 3 ML NEB RESP TX SCH ×6 (02:49→19:08)
[2020-03-07 03:08] LABS: Alanine Aminotransferase 131 U/L (16-61); Albumin 3.2 G/DL (3.4-5.0); Alkaline Phosphatase 121 U/L (45-117); Aspartate Amino Transferase 61 U/L (0-37); Bilirubin,Indirect 0.3 MG/DL (0.0-1.0); Bilirubin,Total < 0.39 MG/DL (0.2-1.0); Blood Urea Nitrogen 34 MG/DL (7-18); Calcium 8.2 MG/DL (8.5-10.1); Estimated Glom Filtration Rate 66 ML/MIN; Glucose 208 MG/DL (74-106); Osmolality,Calculated 288.7 MOS/KG (273-304); Total Protein 6.8 G/DL (6.4-8.3)
[2020-03-07] MEDS: POTASSIUM CHLORIDE 20 MEQ TABLET PO PRN ×2 (06:22→09:49)
[2020-03-07] MEDS: LEVOTHYROXINE 25 MCG TABLET PO SCH (06:22)
[2020-03-07] MEDS: methylPREDNISolone SOD SUC 40 MG/1 ML VIAL IV SCH ×2 (06:25→17:35)
[2020-03-07] MEDS: DOCUSATE SODIUM 100 MG CAPSULE PO SCH ×2 (09:48→13:16)
[2020-03-07] MEDS: EZETIMIBE 10 MG TABLET PO SCH (09:49)
[2020-03-07] MEDS: CHLORTHALIDONE 25 MG TABLET PO SCH (09:49)
[2020-03-07] MEDS: FERROUS SULFATE 325 MG TABLET PO SCH (09:49)
[2020-03-07] MEDS: GABAPENTIN 600 MG TABLET PO SCH (09:49)
[2020-03-07] MEDS: PANTOPRAZOLE 40 MG TABLET PO SCH (09:49)
[2020-03-07] MEDS: ASPIRIN EC 325 MG TABLET PO SCH (09:49)
[2020-03-07] MEDS: AMIODARONE 200 MG TABLET PO SCH ×2 (09:50→21:09)
[2020-03-07] MEDS: amLODIPine 5 MG TABLET PO SCH (09:50)
[2020-03-07] MEDS: INSULIN REGULAR 100 UNIT/ML SUBCUT SCH ×2 (09:51→13:15)
[2020-03-07] MEDS: CHLORHEXIDINE 0.12% ORAL RINSE 60 ML BOTTLE SWISH/SPIT SCH ×3 (09:52→21:09)
[2020-03-07] MEDS ORDERED: SODIUM CHLOR 0.45% KCL 20 MEQ 20 MEQ/1,000 ML BAG IV SCH (11:58)
[2020-03-07] MEDS ORDERED: ACETAMINOPHEN 325 MG TABLET PO PRN (11:58)
[2020-03-07] MEDS ORDERED: MAGNESIUM SULF RIDER 4 GM in PREMIX 1 EACH IV PRN (11:58)
[2020-03-07] MEDS ORDERED: MAGNESIUM HYDROXIDE SUSP 30 ML UDCUP PO PRN (11:58)
[2020-03-07] MEDS ORDERED: MAGNESIUM SULF RIDER 2 GM in PREMIX 1 EACH IV PRN (11:58)
[2020-03-07] MEDS ORDERED: POTASSIUM CHLORIDE 20 MEQ TABLET PO PRN (11:58)
[2020-03-07] MEDS ORDERED: GLUCAGON 1 MG VIAL IM PRN (11:58)
[2020-03-07] MEDS ORDERED: DEXTROSE 50% 25 GM/50 ML VIAL IV PRN (11:58)
[2020-03-07] MEDS ORDERED: ONDANSETRON 4 MG/2 ML VIAL IV PRN (11:58)
[2020-03-08] MEDS: ALBUTEROL/IPRATROPIUM 3 ML NEB RESP TX SCH ×5 (00:08→18:11)
[2020-03-08 05:36] LABS: Basophils # 0.1 10*3/uL (0.0-0.2); Basophils % 0.3 % (0.0-0.8); Eosinophils % 0.1 % (0.00-10.9); Hemoglobin 10.5 GM/DL (14.0-18.0); Immature Granulocytes % 7.6 %; Immature Granulocytes Absolute 1.31 #; Lymphocytes % 17.3 % (21.2-54.2); Mean Corpuscular Volume 82.9 FL (87-102); Mean Platelet Volume 10.2 FL (9.6-12.0); Monocytes % 12.5 % (1.7-12.7); Neutrophils % 62.2 % (38.7-73.9); Platelet Count 260 T/CUMM (130-400); Red Blood Count 3.62 MC/CUMM (3.8-5.5); Red Cell Distribution Width 14.6 % (9.3-17.3); White Blood Count 17.1 T/CUMM (4-12)
[2020-03-08] MEDS ORDERED: FUROSEMIDE 40 MG/4 ML VIAL IV ONE (06:00)
[2020-03-08 06:08] LABS: Hypochromasia 1+; Lymphocytes 22 % (20-55); Myelocytes 1 %; Nucleated Red Blood Cells 1 (0-5); Segmented Neutrophils 64 % (50-85); Total Cells Counted 100
[2020-03-08 06:09] LABS: Microcytosis Slight; Polychromasia Slight; Target Cells Few
[2020-03-08 06:10] LABS: Platelet Estimate Normal
[2020-03-08] MEDS: oxyCODONE/ACETAMINOPHEN 5-325 MG TABLET PO PRN (06:15)
[2020-03-08] MEDS: LEVOTHYROXINE 25 MCG TABLET PO SCH (06:15)
[2020-03-08] MEDS: methylPREDNISolone SOD SUC 40 MG/1 ML VIAL IV SCH ×2 (06:16→18:43)
[2020-03-08 06:22] LABS: Alanine Aminotransferase 122 U/L (16-61); Alkaline Phosphatase 113 U/L (45-117); Aspartate Amino Transferase 48 U/L (0-37); Bilirubin,Indirect 0.6 MG/DL (0.0-1.0); Blood Urea Nitrogen 29 MG/DL (7-18); Calcium 8.2 MG/DL (8.5-10.1); Estimated Glom Filtration Rate 91 ML/MIN; Glucose 91 MG/DL (74-106); Total Protein 6.7 G/DL (6.4-8.3)
[2020-03-08] MEDS: DOCUSATE SODIUM 100 MG CAPSULE PO SCH (09:15)
[2020-03-08] MEDS: amLODIPine 5 MG TABLET PO SCH (09:15)
[2020-03-08] MEDS: FERROUS SULFATE 325 MG TABLET PO SCH (09:15)
[2020-03-08] MEDS: GABAPENTIN 600 MG TABLET PO SCH (09:16)
[2020-03-08] MEDS: ASPIRIN EC 325 MG TABLET PO SCH (09:16)
[2020-03-08] MEDS: AMIODARONE 200 MG TABLET PO SCH (09:17)
[2020-03-08] MEDS: PANTOPRAZOLE 40 MG TABLET PO SCH (09:17)
[2020-03-08] MEDS: CHLORHEXIDINE 0.12% ORAL RINSE 60 ML BOTTLE SWISH/SPIT SCH ×2 (09:17→22:21)
[2020-03-08] MEDS: EZETIMIBE 10 MG TABLET PO SCH (09:17)
[2020-03-08] MEDS ORDERED: ALBUTEROL/IPRATROPIUM 3 ML NEB RESP TX ONE (10:21)
[2020-03-09] MEDS: ALBUTEROL/IPRATROPIUM 3 ML NEB RESP TX SCH ×4 (01:05→19:07)
[2020-03-09 05:37] LABS: Basophils % 0.2 % (0.0-0.8); Hematocrit 29.3 VOL% (42.0-52.0); Hemoglobin 10.3 GM/DL (14.0-18.0); Immature Granulocytes % 2.1 %; Immature Granulocytes Absolute 0.44 #; Lymphocytes # 1.5 10*3/uL (1.4-4.0); Lymphocytes % 6.9 % (21.2-54.2); Mean Corpuscular HGB Conc 35.2 GM/DL (32-36); Mean Platelet Volume 9.7 FL (9.6-12.0); Monocytes % 8.2 % (1.7-12.7); NRBC # 0.04 10*3/uL; Neutrophils % 82.6 % (38.7-73.9); Platelet Count 242 T/CUMM (130-400); Red Blood Count 3.53 MC/CUMM (3.8-5.5); Red Cell Distribution Width 14.3 % (9.3-17.3); White Blood Count 21.2 T/CUMM (4-12)
[2020-03-09 06:01] LABS: Alanine Aminotransferase 92 U/L (16-61); Albumin 2.8 G/DL (3.4-5.0); Alkaline Phosphatase 102 U/L (45-117); Aspartate Amino Transferase 28 U/L (0-37); Bilirubin,Indirect 0.4 MG/DL (0.0-1.0); Blood Urea Nitrogen 38 MG/DL (7-18); Calcium 7.8 MG/DL (8.5-10.1); Estimated Glom Filtration Rate 73 ML/MIN; Glucose 108 MG/DL (74-106); Osmolality,Calculated 273.5 MOS/KG (273-304); Total Protein 6.5 G/DL (6.4-8.3)
[2020-03-09 06:02] LABS: Troponin I 0.957 NG/ML (0.00-0.045)
[2020-03-09 06:15] LABS: Eosinophils 1 % (0-10); Lymphocytes 10 % (20-55); Metamyelocytes 2 %; Platelet Estimate Normal; Segmented Neutrophils 79 % (50-85); Total Cells Counted 100
[2020-03-09 06:16] LABS: Hypochromasia 2+
[2020-03-09] MEDS: methylPREDNISolone SOD SUC 40 MG/1 ML VIAL IV SCH ×2 (06:36→18:02)
[2020-03-09] MEDS: LEVOTHYROXINE 25 MCG TABLET PO SCH (06:36)
[2020-03-09] MEDS: DOCUSATE SODIUM 100 MG CAPSULE PO SCH (08:34)
[2020-03-09] MEDS: ASPIRIN EC 325 MG TABLET PO SCH (08:34)
[2020-03-09] MEDS: GABAPENTIN 600 MG TABLET PO SCH (08:34)
[2020-03-09] MEDS: CHLORHEXIDINE 0.12% ORAL RINSE 60 ML BOTTLE SWISH/SPIT SCH ×2 (08:34→21:01)
[2020-03-09] MEDS: PANTOPRAZOLE 40 MG TABLET PO SCH (08:34)
[2020-03-09] MEDS: FERROUS SULFATE 325 MG TABLET PO SCH (08:34)
[2020-03-09] MEDS: LEVOFLOXACIN 500 MG TABLET PO SCH (13:30)
[2020-03-10] MEDS: ALBUTEROL/IPRATROPIUM 3 ML NEB RESP TX SCH ×4 (01:39→18:57)
[2020-03-10 04:47] LABS: Basophils % 0.2 % (0.0-0.8); Hematocrit 30.2 VOL% (42.0-52.0); Hemoglobin 10.7 GM/DL (14.0-18.0); Immature Granulocytes % 1.9 %; Immature Granulocytes Absolute 0.36 #; Lymphocytes # 1.9 10*3/uL (1.4-4.0); Lymphocytes % 9.9 % (21.2-54.2); Mean Corpuscular HGB Conc 35.4 GM/DL (32-36); Mean Corpuscular Volume 81.6 FL (87-102); Mean Platelet Volume 10.2 FL (9.6-12.0); Monocytes % 6.4 % (1.7-12.7); NRBC # 0.03 10*3/uL; Neutrophils % 81.6 % (38.7-73.9); Platelet Count 299 T/CUMM (130-400); Red Cell Distribution Width 14.3 % (9.3-17.3); White Blood Count 18.7 T/CUMM (4-12)
[2020-03-10 05:19] LABS: Calcium 8.2 MG/DL (8.5-10.1); Osmolality,Calculated 277.4 MOS/KG (273-304)
[2020-03-10] MEDS: methylPREDNISolone SOD SUC 40 MG/1 ML VIAL IV SCH ×2 (05:57→18:17)
[2020-03-10] MEDS: LEVOTHYROXINE 25 MCG TABLET PO SCH (05:57)
[2020-03-10] MEDS: LEVOFLOXACIN 500 MG TABLET PO SCH (08:00)
[2020-03-10] MEDS: PANTOPRAZOLE 40 MG TABLET PO SCH (08:00)
[2020-03-10] MEDS: FERROUS SULFATE 325 MG TABLET PO SCH (08:00)
[2020-03-10] MEDS: GABAPENTIN 600 MG TABLET PO SCH (08:00)
[2020-03-10] MEDS: CHLORHEXIDINE 0.12% ORAL RINSE 60 ML BOTTLE SWISH/SPIT SCH (08:00)
[2020-03-10] MEDS: DOCUSATE SODIUM 100 MG CAPSULE PO SCH (08:00)
[2020-03-10] MEDS: ASPIRIN EC 325 MG TABLET PO SCH (08:00)
[2020-03-10] MEDS: ASCORBIC ACID 500 MG TABLET PO SCH ×2 (10:12→20:33)
[2020-03-10] MEDS ORDERED: DEXTROSE 50% 25 GM/50 ML VIAL IV PRN (13:14)
[2020-03-10] MEDS ORDERED: MAGNESIUM SULF RIDER 2 GM in PREMIX 1 EACH IV PRN (13:14)
[2020-03-10] MEDS ORDERED: ALUMINUM/MAGNES/SIMETH MAX STR 30 ML UDCUP PO PRN (13:14)
[2020-03-10] MEDS ORDERED: POTASSIUM CHLORIDE 20 MEQ TABLET PO PRN (13:14)
[2020-03-10] MEDS ORDERED: ZALEPLON 5 MG CAPSULE PO PRN (13:14)
[2020-03-10] MEDS ORDERED: MAGNESIUM SULF RIDER 4 GM in PREMIX 1 EACH IV PRN (13:14)
[2020-03-10] MEDS ORDERED: ONDANSETRON 4 MG/2 ML VIAL IV PRN (13:14)
[2020-03-10] MEDS ORDERED: ACETAMINOPHEN 325 MG TABLET PO PRN (13:14)
[2020-03-10] MEDS: MAGNESIUM HYDROXIDE SUSP 30 ML UDCUP PO PRN (17:05)
[2020-03-11] MEDS: ALUMINUM/MAGNES/SIMETH MAX STR 30 ML UDCUP PO PRN (00:15)
[2020-03-11] MEDS: ALBUTEROL/IPRATROPIUM 3 ML NEB RESP TX SCH ×4 (00:40→19:01)
[2020-03-11] MEDS: LEVOTHYROXINE 25 MCG TABLET PO SCH (05:59)
[2020-03-11] MEDS: methylPREDNISolone SOD SUC 40 MG/1 ML VIAL IV SCH ×2 (05:59→18:09)
[2020-03-11 06:47] LABS: Basophils % 0.1 % (0.0-0.8); Eosinophils % 0.1 % (0.00-10.9); Hematocrit 29.1 VOL% (42.0-52.0); Hemoglobin 10.3 GM/DL (14.0-18.0); Immature Granulocytes % 1.4 %; Immature Granulocytes Absolute 0.17 #; Lymphocytes # 1.4 10*3/uL (1.4-4.0); Lymphocytes % 11.1 % (21.2-54.2); Mean Corpuscular HGB Conc 35.4 GM/DL (32-36); Mean Corpuscular Volume 82.4 FL (87-102); Mean Platelet Volume 9.9 FL (9.6-12.0); Monocytes % 7.6 % (1.7-12.7); NRBC # 0.03 10*3/uL; Neutrophils % 79.7 % (38.7-73.9); Platelet Count 277 T/CUMM (130-400); Red Blood Count 3.53 MC/CUMM (3.8-5.5); Red Cell Distribution Width 14.7 % (9.3-17.3); White Blood Count 12.5 T/CUMM (4-12)
[2020-03-11 07:50] LABS: Alanine Aminotransferase 66 U/L (16-61); Albumin 2.7 G/DL (3.4-5.0); Alkaline Phosphatase 91 U/L (45-117); Aspartate Amino Transferase 21 U/L (0-37); Bilirubin,Indirect 0.3 MG/DL (0.0-1.0); Bilirubin,Total < 0.39 MG/DL (0.2-1.0); Blood Urea Nitrogen 42 MG/DL (7-18); Calcium 7.9 MG/DL (8.5-10.1); Estimated Glom Filtration Rate 61 ML/MIN; Glucose 137 MG/DL (74-106); Total Protein 6.2 G/DL (6.4-8.3)
[2020-03-11] MEDS: LEVOFLOXACIN 500 MG TABLET PO SCH (09:13)
[2020-03-11] MEDS: POLYETHYLENE GLYCOL POWDER 17 GM PACK PO SCH (09:13)
[2020-03-11] MEDS: DOCUSATE SODIUM 100 MG CAPSULE PO SCH (09:13)
[2020-03-11] MEDS: GABAPENTIN 600 MG TABLET PO SCH (09:13)
[2020-03-11] MEDS: ASPIRIN EC 325 MG TABLET PO SCH (09:13)
[2020-03-11] MEDS: ASCORBIC ACID 500 MG TABLET PO SCH ×2 (09:13→21:11)
[2020-03-12] MEDS: ALBUTEROL/IPRATROPIUM 3 ML NEB RESP TX SCH ×4 (02:00→18:29)
[2020-03-12 06:14] LABS: Calcium 7.7 MG/DL (8.5-10.1); Osmolality,Calculated 279.8 MOS/KG (273-304)
[2020-03-12] MEDS: methylPREDNISolone SOD SUC 40 MG/1 ML VIAL IV SCH ×2 (06:15→17:38)
[2020-03-12] MEDS: LEVOTHYROXINE 25 MCG TABLET PO SCH (06:15)
[2020-03-12 06:19] LABS: Alanine Aminotransferase 52 U/L (16-61); Albumin 2.6 G/DL (3.4-5.0); Alkaline Phosphatase 79 U/L (45-117); Aspartate Amino Transferase 15 U/L (0-37); Bilirubin,Indirect 0.3 MG/DL (0.0-1.0); Blood Urea Nitrogen 34 MG/DL (7-18); Calcium 7.5 MG/DL (8.5-10.1); Estimated Glom Filtration Rate 73 ML/MIN; Glucose 105 MG/DL (74-106); Osmolality,Calculated 280.8 MOS/KG (273-304); Total Protein 5.8 G/DL (6.4-8.3)
[2020-03-12 08:02] LABS: Basophils % 0.1 % (0.0-0.8); Eosinophils # 0.1 10*3/uL (0.0-0.87); Eosinophils % 0.4 % (0.00-10.9); Hematocrit 27.6 VOL% (42.0-52.0); Hemoglobin 9.7 GM/DL (14.0-18.0); Immature Granulocytes % 2.3 %; Immature Granulocytes Absolute 0.36 #; Lymphocytes # 2.5 10*3/uL (1.4-4.0); Lymphocytes % 16.4 % (21.2-54.2); Mean Corpuscular HGB Conc 35.1 GM/DL (32-36); Mean Corpuscular Volume 83.4 FL (87-102); Mean Platelet Volume 9.3 FL (9.6-12.0); Monocytes % 8.8 % (1.7-12.7); Platelet Count 330 T/CUMM (130-400); Red Blood Count 3.31 MC/CUMM (3.8-5.5); Red Cell Distribution Width 14.6 % (9.3-17.3); White Blood Count 15.4 T/CUMM (4-12)
[2020-03-12] MEDS: POLYETHYLENE GLYCOL POWDER 17 GM PACK PO SCH (08:55)
[2020-03-12] MEDS: LEVOFLOXACIN 500 MG TABLET PO SCH (08:55)
[2020-03-12] MEDS: ASPIRIN EC 325 MG TABLET PO SCH (08:55)
[2020-03-12] MEDS: DOCUSATE SODIUM 100 MG CAPSULE PO SCH (08:55)
[2020-03-12] MEDS: GABAPENTIN 600 MG TABLET PO SCH (08:55)
[2020-03-12] MEDS: ASCORBIC ACID 500 MG TABLET PO SCH ×2 (08:56→21:12)
[2020-03-12] MEDS: MAGNESIUM HYDROXIDE SUSP 30 ML UDCUP PO PRN (12:09)
[2020-03-13] MEDS: ALBUTEROL/IPRATROPIUM 3 ML NEB RESP TX SCH ×4 (01:28→23:44)
[2020-03-13] MEDS: methylPREDNISolone SOD SUC 40 MG/1 ML VIAL IV SCH ×2 (05:10→18:04)
[2020-03-13] MEDS: LEVOTHYROXINE 25 MCG TABLET PO SCH (05:45)
[2020-03-13 06:17] LABS: Basophils % 0.2 % (0.0-0.8); Eosinophils % 0.2 % (0.00-10.9); Hematocrit 26.8 VOL% (42.0-52.0); Hemoglobin 9.6 GM/DL (14.0-18.0); Immature Granulocytes % 4.3 %; Lymphocytes # 1.6 10*3/uL (1.4-4.0); Lymphocytes % 11.6 % (21.2-54.2); Mean Corpuscular HGB Conc 35.8 GM/DL (32-36); Mean Corpuscular Volume 83.2 FL (87-102); Mean Platelet Volume 9.6 FL (9.6-12.0); Monocytes % 9.1 % (1.7-12.7); NRBC # 0.02 10*3/uL; Neutrophils % 74.6 % (38.7-73.9); Platelet Count 309 T/CUMM (130-400); Red Blood Count 3.22 MC/CUMM (3.8-5.5); Red Cell Distribution Width 14.8 % (9.3-17.3); White Blood Count 13.9 T/CUMM (4-12)
[2020-03-13 06:40] LABS: Calcium 8.1 MG/DL (8.5-10.1); Osmolality,Calculated 286.4 MOS/KG (273-304)
[2020-03-13 06:47] LABS: Hypochromasia Slight; Lymphocytes 12 % (20-55); Microcytosis 1+; Nucleated Red Blood Cells 1 (0-5); Platelet Estimate Normal; Segmented Neutrophils 81 % (50-85); Total Cells Counted 100
[2020-03-13] MEDS: LEVOFLOXACIN 500 MG TABLET PO SCH (09:04)
[2020-03-13] MEDS: ASPIRIN EC 325 MG TABLET PO SCH (09:04)
[2020-03-13] MEDS: GABAPENTIN 600 MG TABLET PO SCH (09:04)
[2020-03-13] MEDS: ASCORBIC ACID 500 MG TABLET PO SCH ×2 (09:04→21:02)
[2020-03-13] MEDS: POLYETHYLENE GLYCOL POWDER 17 GM PACK PO SCH (09:05)
[2020-03-13] MEDS: DOCUSATE SODIUM 100 MG CAPSULE PO SCH (09:05)
[2020-03-13] MEDS: ALUMINUM/MAGNES/SIMETH MAX STR 30 ML UDCUP PO PRN ×2 (10:13→23:43)
[2020-03-14] MEDS: ALBUTEROL/IPRATROPIUM 3 ML NEB RESP TX SCH ×2 (01:34→07:13)
[2020-03-14 04:02] LABS: Basophils % 0.3 % (0.0-0.8); Eosinophils % 0.1 % (0.00-10.9); Hematocrit 28.9 VOL% (42.0-52.0); Hemoglobin 10.2 GM/DL (14.0-18.0); Immature Granulocytes % 3.7 %; Immature Granulocytes Absolute 0.59 #; Lymphocytes % 12.5 % (21.2-54.2); Mean Corpuscular HGB Conc 35.3 GM/DL (32-36); Mean Corpuscular Volume 84.5 FL (87-102); Mean Platelet Volume 9.4 FL (9.6-12.0); Monocytes % 8.3 % (1.7-12.7); NRBC # 0.04 10*3/uL; Neutrophils % 75.1 % (38.7-73.9); Platelet Count 404 T/CUMM (130-400); Red Blood Count 3.42 MC/CUMM (3.8-5.5); Red Cell Distribution Width 14.8 % (9.3-17.3); White Blood Count 15.8 T/CUMM (4-12)
[2020-03-14 04:30] LABS: Alanine Aminotransferase 50 U/L (16-61); Albumin 2.9 G/DL (3.4-5.0); Alkaline Phosphatase 87 U/L (45-117); Aspartate Amino Transferase 16 U/L (0-37); Bilirubin,Indirect 0.3 MG/DL (0.0-1.0); Bilirubin,Total < 0.39 MG/DL (0.2-1.0); Blood Urea Nitrogen 29 MG/DL (7-18); Calcium 8.5 MG/DL (8.5-10.1); Estimated Glom Filtration Rate 61 ML/MIN; Glucose 115 MG/DL (74-106); Osmolality,Calculated 285.4 MOS/KG (273-304); Total Protein 6.3 G/DL (6.4-8.3)
[2020-03-14 04:33] LABS: Troponin I 0.492 NG/ML (0.00-0.045)
[2020-03-14 04:38] LABS: Lymphocytes 16 % (20-55); Metamyelocytes 2 %; Myelocytes 1 %; Nucleated Red Blood Cells 2 (0-5); Segmented Neutrophils 70 % (50-85); Total Cells Counted 100
[2020-03-14 04:40] LABS: Hypochromasia 1+; Platelet Estimate Normal; Polychromasia Few; Target Cells 1+
[2020-03-14] MEDS: methylPREDNISolone SOD SUC 40 MG/1 ML VIAL IV SCH (05:38)
[2020-03-14] MEDS: LEVOTHYROXINE 25 MCG TABLET PO SCH (05:39)
[2020-03-14] MEDS ORDERED: METOPROLOL TARTRATE 25 MG TABLET PO SCH (09:00)
[2020-03-14] MEDS ORDERED: predniSONE 10 MG TABLET PO SCH (09:00)
[2020-03-14] MEDS: ASPIRIN EC 325 MG TABLET PO SCH (09:59)
[2020-03-14] MEDS: DOCUSATE SODIUM 100 MG CAPSULE PO SCH (09:59)
[2020-03-14] MEDS: LEVOFLOXACIN 500 MG TABLET PO SCH (10:00)
[2020-03-14] MEDS: POLYETHYLENE GLYCOL POWDER 17 GM PACK PO SCH (10:03)
[2020-03-14] MEDS: GABAPENTIN 600 MG TABLET PO SCH (10:03)
[2020-03-14] MEDS: ASCORBIC ACID 500 MG TABLET PO SCH (10:04)
[2020-03-14 12:15] VITALS: BP 122/76
== END 2020-03-14 13:42 | disposition home health service (06) | DRG 235 ==
LOC: N.TELES 16:17 → N.CVR 03-01 10:26 → N.ICU 03-02 14:46 → N.TELES 03-07 14:11 → N.ICU 03-08 15:23 → N.TELES 03-10 11:18